=== PATIENT | female | born 1975 | race Caucasian/White ===

== ENCOUNTER → 2018-04-14 | Outpatient (CLI) | payer MEDICAID ==
[~2018-04-14] MED LIST: ACET-2267 PO; CYCL10TA9 PO; IBUP-1780 PO; METH4TAB PO; ONDA4TAB8 PO
--- NOTE | 2018-04-14 12:11 | Diagnostic Imaging Report ---
Indication: Routine screening. No prior mammograms are available for comparison. This is a baseline study. 2-D and 3-D bilateral screening mammography was performed. Scattered fibronodular densities are identified bilaterally. There are benign calcifications bilaterally. No mass or malignant-appearing microcalcifications are seen. The axillae are unremarkable. Impression: BI-RADS category 2 No mammographic features suspicious for malignancy are identified. Dictated by: Dictated on workstation # [id number]
== END ==
LOC: RAD 10:04
PROVIDERS: ATTEND Nurse Practitioner Primary Care
DX: Z12.31 Encounter for screening mammogram for malignant neoplasm of breast (principal)
CPT/HCPCS: 77067

== ENCOUNTER 2018-04-15 17:57 | Emergency (ER) | payer MEDICAID ==
[~2018-04-15] VITALS: Ht 154.9 cm; Wt 91.6 kg
[2018-04-15] MEDS ORDERED: PROMETHAZINE INJ 25 MG/ML (PHENERGAN) AMP IVP STA (18:10)
[2018-04-15] MEDS ORDERED: NS IV 1000 ML 1,000 ML IV STA (18:10)
[2018-04-15] MEDS ORDERED: KETOROLAC 30 MG/ML VIAL IVP STA (18:10)
[2018-04-15] MEDS ORDERED: diphenhydrAMINE 50 MG/ML INJ (BENADRYL) IV STA (18:10)
[2018-04-15] MEDS ORDERED: ACET-2267 PO (18:23)
[2018-04-15] MEDS ORDERED: IBUP-1780 PO (18:23)
--- NOTE | 2018-04-15 18:27 | ED Headache ---
General Chief Complaint: Head/Cervical Problems Stated Complaint: MIGRAINE,WORSE LAST SEVERAL HOURS Source: patient Exam Limitations: no limitations History of Present Illness Date Seen by Provider: Apr 15, 2018 Time Seen by Provider: 18:08 Initial Comments Here with report of migraine headache that is bitemporal and radiates to the back of her head. Typical but longer-lasting than normal. She states that she' s had increased stress recently and so her headache seemed to be more of a problem. She is established with [facility] and her provider there wanted her to come back for further evaluation if things were getting better. Recently started a new job and they think this may be adding to the cause of the headache. She has suffered from migraines for many years. Denies fever or chills. Does have nausea but no vomiting. Aggravated by light and sound. Does have history of sinus problems and is on a variety of medicines for that. Has tried ibuprofen several hours ago and Tylenol this morning and that did not reinaldo the headache. Timing/Duration: 1 week, waxing and waning Severity/Quality: pressure Location: temporal, occipital Prior Headaches/Recent Trauma: frequent headaches Modifying Factors: worse with exposure to light Associated Symptoms: No confusion, No facial pain, No fever/chills, No loss of consciousness, No stiff neck, No vision changes, No weakness Allergies and Home Medications Allergies Coded Allergies: Sulfa (Sulfonamide Antibiotics) (Verified Allergy, Unknown, 04/15/18) codeine (Verified Allergy, Unknown, 04/15/18) Home Medications Acetaminophen 500 Mg Tablet, 1,000 MG PO Q6H PRN for HEADACHE, (Reported) Ibuprofen 800 Mg Tablet, 800 MG PO Q8H PRN for PAIN, (Reported) Patient Home Medication List Home Medication List Reviewed: Yes Review of Systems Constitutional: see HPI; No chills, No fever Eyes: No Symptoms Reported Ears, Nose, Mouth, Throat: see HPI Respiratory: no symptoms reported Cardiovascular: no symptoms reported; No chest pain, No edema Gastrointestinal: No abdominal pain; nausea; No vomiting Genitourinary: no symptoms reported Musculoskeletal: no symptoms reported Skin: no symptoms reported Psychiatric/Neurological: See HPI, Headache; Denies Paresthesia, Denies Weakness Past Yqcjlqu-Soiftg-Orccbu Hx Past Med/Social Hx: Reviewed Nursing Past Med/Soc Hx Patient Social History Alcohol Use: Denies Use Recreational Drug Use: Yes Drug of Choice: METH-CLEAN SINCE AUG 2017 Smoking Status: Never a Smoker Recent Foreign Travel: No Contact w/Someone Who Travel: No Recent Hopitalizations: No Physical Abuse: No Sexual Abuse: No Mistreated: No Fear: No Seasonal Allergies Seasonal Allergies: Yes Past Medical History Surgeries: Yes (CARPAL TUNNEL, BREAST AUG, R HAND ) Gallbladder Respiratory: No Cardiac: No Neurological: Yes Headaches /Migraines Genitourinary: No Gastrointestinal: Yes Gastroesophageal Reflux, Ulcer Musculoskeletal: No Endocrine: No HEENT: No Cancer: No Psychosocial: Yes Anxiety, Depression Nursing Suicide Risk Score: 0 Integumentary: No Blood Disorders: No Family Medical History Reviewed Nursing Family Hx No Pertinent Family Hx Physical Exam Vital Signs Vital Signs - First Documented 04/15/18 18:12 Temp 97.4 Pulse 85 Resp 18 B/P (MAP) 144/100 (115) Pulse Ox 95 Capillary Refill : Height, Weight, BMI Height: '" Weight: lbs. oz. kg; BMI Method: General Appearance: WD/WN, mild distress (headache) HEENT: PERRL/EOMI, pharynx normal Neck: full range of motion, supple Cardiovascular: regular rate, rhythm, no murmur Respiratory: lungs clear, normal breath sounds Gastrointestinal: non tender, soft Back: normal inspection, no CVA tenderness, no vertebral tenderness Extremities: non-tender, normal inspection Psychiatric: alert, oriented x 3 Crainal Nerves: normal hearing, normal speech, PERRL Coordination/Gait: normal gait Motor/Sensory: no motor deficit, no sensory deficit Skin: normal color, warm/dry Progress/Results/Core Measures Results/Orders My Orders Orders - GIOVANY DIA MD Ketorolac Injection (Toradol Injection) (04/15/18 18:10) Promethazine Injection (Phenergan Injec (04/15/18 18:10) Ns Iv 1000 Ml (Sodium Chloride 0.9%) (04/15/18 18:10) Saline Lock/Iv-Start (04/15/18 18:10) Diphenhydramine Injection (Benadryl Inje (04/15/18 18:10) Dexamethasone Injection (Decadron Inject (04/15/18 19:24) Haloperidol Injection (Haldol Injectio (04/15/18 19:30) Haloperidol Injection (Haldol Injectio (04/15/18 19:23) Dexamethasone Injection (Decadron Inject (04/15/18 19:23) Vital Signs/I&O 04/15/18 18:12 Temp 97.4 Pulse 85 Resp 18 B/P (MAP) 144/100 (115) Pulse Ox 95 Progress Progress Note : Progress Note Seen and evaluated. IV, normal saline 1 L bolus, Phenergan 25 mg IV, Benadryl 50 mg IV and Toradol 30 mg IV ordered. Monitor patient. 1909: Pain is not significantly improved. Haldol 5 mg IV and Decadron 10 mg IV ordered. This was given. 1939 pain is much better and patient feels like she can tolerate this at home. Discharged home with return precautions. Patient verbalize understanding instructions and agreement with plan. Departure Impression Primary Impression: Migraine Qualified Codes: G43.909 - Migraine, unspecified, not intractable, without status migrainosus Disposition: HOME, SELF-CARE Condition: Improved Departure-Patient Inst. Decision time for Depature: 19:44 Referrals: KAREEM ANDINO APRN (PCP/Family) Primary Care Physician Patient Instructions: Migraine Headache (DC) Add. Discharge Instructions: All discharge instructions reviewed with patient and/or family. Voiced understanding. Drink plenty of fluids. Follow-up with your doctor this week for recheck and further evaluation. You may take ibuprofen 800 mg every 8 hours as needed for pain. You may take Tylenol/acetaminophen 1000 mg every 8 hours as needed for pain. Return for worse pain, fever, vomiting, weakness, breathing problems or other concerns as needed. Work/School Note: Work Release Form Date Seen in the Emergency Department: Apr 15, 2018 Return to Work: Apr 16, 2018 Restrictions: No Restrictions GIOVANY DIA MD Apr 15, 2018 18:27
[2018-04-15] MEDS ORDERED: HALOPERIDOL 5 MG/ML (HALDOL) AMP ONE (19:23)
[2018-04-15] MEDS ORDERED: DEXAMETHASONE 10 MG/ML (DECADRON) 1 ML VIAL ONE (19:23)
[2018-04-15] MEDS ORDERED: DEXAMETHASONE 10 MG/ML (DECADRON) 1 ML VIAL IV STA (19:24)
[2018-04-15] MEDS ORDERED: HALOPERIDOL 5 MG/ML (HALDOL) AMP IV ONE (19:30)
[2018-04-15 19:56] VITALS: BP 144/100
--- OUTSIDE RECORDS SUMMARY | 2018-04-17 02:59 | XMS REPORT | Summary of Care ---
Author Author Anisha Whittington M.D. Organization Unknown Address [address] [place], [place] [id number] Phone Unavailable Care Team Providers [employer] Sales Representative Name Role Phone Anisha Whittington M.D. Unavailable Unavailable Maria Elena Miller, Elsie Herrera Unavailable Unavailable Andra Stuart PP Unavailable Unavailable Unavailable Functional Status Functional Status Health Issues* Name Dates Details Functional status health issues are not documented Status: Cognitive Status Health Issues* Name Dates Details Cognitive status health issues are not documented Status: Problems Name Dates Details High blood cholesterol level (272.0, E78.0) Status: Active Eustachian tube dysfunction (381.81, H69.80) Status: Active Depression (311, F32.9) Status: Active Chronic rhinitis (472.0, J31.0) Status: Active Chronic sinusitis (473.9, J32.9) Status: Active Nasal congestion (478.19, R09.81) Status: Active Head ache (784.0, R51) Status: Active Medications Name Dates Details Effexor XR 37.5 MG Oral Capsule Extended Release 24 Hour * Started 10-Jun-2014 ActivePROzac 20 MG Oral Capsule * Refills: 0 * Started 10-Jun-2014 ActiveMultivitamins Oral Capsule * Refills: 0 * Started 10-Jun-2014 ActiveTylenol Extra Strength 500 MG Oral Tablet * Refills: 0 * Started 10-Jun-2014 ActiveBenadryl 25 MG Oral Tablet * Refills: 0 * Started 10-Jun-2014 ActiveMucinex D 120-1200 MG Oral Tablet Extended Release 12 Hour * Refills: 0 Anisha Whittington M.D.* Started 01-Jul-2014 ActiveOmeprazole 20 MG Oral Capsule Delayed Release TAKE 1 CAPSULE DAILY. * Refills: 0 Sharon Arredondo M.D.* Started 02-Jul-2015 ActiveRanitidine HCl - 150 MG Oral Tablet TAKE 1 TABLET DAILY NEEDED. * Refills: 0 Anisha Whittington M.D.* Started 02-Jul-2015 ActiveNortriptyline HCl - 25 MG Oral Capsule take 1 capsule daily * Refills: 0 Anisha Whittington M.D.* Started 02-Jul-2015 ActiveFLUoxetine HCl - 40 MG Oral Capsule TAKE 1 CAPSULE DAILY. * Refills: 0 Anisha WhittingtonD.* Started 02-Jul-2015 ActiveDymista 137-50 MCG/ACT Nasal Suspension INSTILL 1 SQUIRT Daily * Refills: 0 Anisha Whittington M.D.* Started 02-Jul-2015 ActiveSimethicone 125 MG Oral Tablet Chewable TAKE DIRECTED. * Refills: 0 Anisha Whittington.D.* Started 02-Jul-2015 Active Allergies and Adverse Reactions Name Dates Details Codeine Sulfate TABS Status: Active Sulfa Drugs Status: Active Procedures Procedure Dates Details History of Gallbladder Surgery History of Breast Surgery Reduction Procedure History of Dental Surgery History of Neuroplasty Decompression Median Nerve At Carpal Tunnel Procedures not documented Immunization Name Dates Details Fluzone Quadrivalent 0.5 ML Intramuscular Suspension Prefilled Syringe Lot #: [id number] Administered on:02-Jul-2015 Family History Father* Name Dates Details Family history of allergic rhinitis (V19.6, Z84.89) Status: Active Sister* Name Dates Details Family history of Food allergy (V15.05, Z91.018) Status: Active Social History Smoking Status* Unknown if ever smoked Vital Signs Date Test Result Details 02-Jul-2015 13:55 BP Systolic 117 mm[Hg] Status: BP Diastolic 85 mm[Hg] Status: Temperature 98.4 f Status: Heart Rate 121 /min Status: Respiration Rate 20 /min Status: Height 61.25 in Status: Weight 169 lb Status: Body Mass Index Calculated 31.67 kg/m2 Status: Body Surface Area Calculated 1.76 m2 Status: Results Date Description Value Details 02-Jul-2015 15:18 XRay SINUS Comments: Exam Date: 07/02/2015 14: 32Dictation Date: 07/02/2015 15:18 X SINUS COMP (MIN 3V) (Better) Plan of Care Planned Observations* Name Dates Details Planned Goals not documented Goal Planned Encounters* Appointment; Provider: Anisha Whittington On 05-Jul-2016 14:15 Instructions * Instructions not documented Encounters Appointment; Anisha Whittington Encounter Diagnosis: Problem not documented On 02-Jul-2015 13:45 Appointment; Anisha Whittington Encounter Diagnosis: Problem not documented On 24-Sep-2014 11:15 Appointment; Anisha Whittington Encounter Diagnosis: Problem not documented On 01-Jul-2014 13:00 Appointment; Darron Chaudhry Encounter Diagnosis: Problem not documented On 10-Jun-2014 14:15
--- OUTSIDE RECORDS SUMMARY | 2018-04-17 03:00 | XMS REPORT | Summary of Care ---
Author Author Anisha Whittington M.D. Organization Unknown Address [address] [place], [place] [id number] Phone Unavailable Care Team Providers Care Horse Groomer Name Role Phone Anisha Whittington M.D. Unavailable Unavailable Isidoro Miller, Elsie Rob Unavailable Unavailable Andra Stuart PP Unavailable Unavailable Unavailable Functional Status Functional Status Health Issues* Name Dates Details Functional status health issues are not documented Status: Cognitive Status Health Issues* Name Dates Details Cognitive status health issues are not documented Status: Problems Name Dates Details High blood cholesterol level (272.0, E78.0) Status: Active Eustachian tube dysfunction (381.81, H69.80) Status: Active Head ache (784.0, R51) Status: Active Depression (311, F32.9) Status: Active Chronic rhinitis (472.0, J31.0) Status: Active Chronic sinusitis (473.9, J32.9) Status: Active Nasal congestion (478.19, R09.81) Status: Active Medications Name Dates Details Flonase 50 MCG/ACT Nasal Suspension * Started 10-Jun-2014 ActiveEffexor XR 37.5 MG Oral Capsule Extended Release 24 Hour * Refills: 0 * Started 10-Jun-2014 ActivePROzac 20 MG Oral Capsule * Refills: 0 * Started 10-Jun-2014 ActiveMultivitamins Oral Capsule * Refills: 0 * Started 10-Jun-2014 ActiveTylenol Extra Strength 500 MG Oral Tablet * Refills: 0 * Started 10-Jun-2014 ActiveBenadryl 25 MG Oral Tablet * Refills: 0 * Started 10-Jun-2014 ActiveFluticasone Propionate 50 MCG/ACT Nasal Suspension USE 2 SPRAYS IN EACH NOSTRIL ONCE DAILY * Quantity: 1 Refills: 0 Darron Chaudhry M.D.* Started 10-Jun-2014 ActiveMucinex D 120-1200 MG Oral Tablet Extended Release 12 Hour * Refills: 0 Anisha Whittington M.D.* Started 01-Jul-2014 ActiveDymista 137-50 MCG/ACT Nasal Suspension 1 spray each nostril twice a day * Quantity: 1 Refills: 6 Anisha Whittington M.D.* Started 01-Jul-2014 Ended 03-Feb-2015 [id number] GM Bottle Allergies and Adverse Reactions Name Dates Details Codeine Sulfate TABS Status: Active Sulfa Drugs Status: Active Procedures Procedure Dates Details History of Gallbladder Surgery History of Breast Surgery Reduction Procedure History of Dental Surgery History of Neuroplasty Decompression Median Nerve At Carpal Tunnel Procedures not documented Immunization Name Dates Details Immunizations not documented Family History Father* Name Dates Details Family history of allergic rhinitis (V19.6, Z84.89) Status: Active Sister* Name Dates Details Family history of Food allergy (693.1, T78.1XXA) Status: Active Social History Smoking Status* Unknown if ever smoked Vital Signs Date Test Result Details 01-Jul-2014 12:53 BP Systolic 122 mm[Hg] Status: BP Diastolic 80 mm[Hg] Status: Heart Rate 78 /min Status: Temperature 98.4 f Status: Weight 162.3125 lb Status: Height 60 in Status: Body Mass Index Calculated 31.7 kg/m2 Status: Body Surface Area Calculated 1.71 m2 Status: Results Date Description Value Details 01-Jul-2014 14:01 CBC w/ Auto Diff 7150 WBC 6.2 K/uL (Better) Range: 4.5-11.0 RBC 4.48 mil/uL (Better) Range: 3.60-5.00 HGB 12.0 g/dL (Better) Range: 12.0-16.0 HCT 37.5 % (Better) Range: 36.0-48.0 MCV 83.7 fL (Better) Range: 80.0-99.0 MCH 26.7 pg (Below low threshold) Range: 27.3-32.5 MCHC 31.8 % (Below low threshold) Range: 32.0-36.0 RDW 13.3 % (Better) Range: 11.6-14.8 PLATELETS 441 K/uL (Above high threshold) Range: 150-400 MPV 6.6 fL (Better) Range: 6.0-11.0 %NEUTRO 52.8 % (Better) Range: 37.0-80.0 %LYMPHS 39.5 % (Better) Range: 13.0-50.0 %MONO 4.1 % (Better) Range: 0.0-12.0 %EOS 1.1 % (Better) Range: 0.0-7.0 %BASO 0.9 % (Better) Range: 0.0-2.5 %LEONEL 1.6 % (Better) Range: 0.0-5.0 NEUTRO 3.3 K/uL (Better) Range: 2.0-6.9 LYMPHS 2.4 K/uL (Better) Range: 0.6-3.4 MONOS 0.3 K/uL (Better) Range: 0.0-0.9 EOS 0.1 K/uL (Better) Range: 0.0-0.7 BASO 0.1 K/uL (Better) Range: 0.0-0.2 05-Jul-2014 11:33 HISS PANEL [id number] Comments: Quest performed at: [facility], [address] [place] [address], , Field Radio Operator: Kevon Steve M.D.Testing performed at: [facility], [address] [place], [place] [address], [address], Field Radio Operator: Nicolas Alejandro D.O., MPHTesting performed at: [employer] , [address] [place] [address], [phone], Field Radio Operator: Damon Camilo MD,PhDQuest Collection Date/Time: [id number] Results Received Date/Time: [id number] Reported Date/Time: [id number] performed at: [employer], [address] [place] [address], , Field Radio Operator: Kevon Steve M.D.Testing performed at: [employer], [facility], [address] [place], [address], Field Radio Operator: Nicolas Alejandro D.O., MPHTesting performed at: [employer], [employer], [address] [place], [address], Field Radio Operator: Damon Camilo MD,PhDQuest Collection Date/Time: [id number] Results Received Date/Time: [id number] Reported Date/Time: [id number] performed at: [facility], [facility], [address] [place] [address], , Field Radio Operator: Kevon Steve M.D.Testing performed at: [place], [facility], [address] [place] [address], [phone], Field Radio Operator: Nicolas Alejandro D.O., MPHTesting performed at: [facility], [facility] [employer], [address] [place] [address], [phone], Field Radio Operator: Damon Camilo MD,PhDQuest Collection Date/Time : [id number] Results Received Date/Time: [id number] Reported Date/Time: [id number] performed at: [facility], [facility], [address] [place] [address], , Field Radio Operator: Kevon Steve M.D.Testing performed at: [place], [facility], [address] [place] [address], [phone], Field Radio Operator: Nicolas Alejandro D.O., MPHTesting performed at: [facility], [facility] [employer], [address] [place], [place] [address], [address], Field Radio Operator: Damon Camilo MD,PhDQuest Collection Date/Time : [id number] Results Received Date/Time: [id number] Reported Date/Time: [id number] performed at: [facility], [facility], [address] [place] [address], , Field Radio Operator: Kevon Steve M.D.Testing performed at: [facility], [address] [place], [phone], Field Radio Operator: Nicolas Alejandro D.O., MPHTesting performed at: [employer], [address] [place], [address], Field Radio Operator: Damon Camilo MD,PhDQuest Collection Date/Time : [id number] Results Received Date/Time: [id number] Reported Date/Time: [id number] performed at: [facility], [address] [place] [address], , Field Radio Operator: Kevon Steve M.D.Testing performed at: [facility], [address] [place] [address], [phone], Field Radio Operator: Nicolas Alejandro D.O., MPHTesting performed at: [employer], [address] [facility] [place], [address], Field Radio Operator: Damon Camilo MD,PhDQuest Collection Date/Time : [id number] Results Received Date/Time: [id number] Reported Date/Time: [id number] IMMUNOGLOBULIN G SUBCLASS 1 368 mg/dL (Below low threshold) Range: 382- 929 Comments: [AMD]----- IMMUNOGLOBULIN G SUBCLASS 2 487 mg/dL (Better) Range: 241-700 Comments: [AMD]----- IMMUNOGLOBULIN G SUBCLASS 3 94 mg/dL (Better) Range: 22-178 Comments: [AMD]----- IMMUNOGLOBULIN G SUBCLASS 4 27.5 mg/dL (Better) Range: 4.0-86.0 Comments: [AMD]----- IMMUNOGLOBULIN G, SERUM 963 mg/dL (Better) Range: 694-1618 Comments: [AMD]----- IMMUNOGLOBULIN A 244 mg/dL (Better) Range: 81-463 Comments: [KS]----- IMMUNOGLOBULIN G 1027 mg/dL (Better) Range: 694-1618 Comments: [KS]----- IMMUNOGLOBULIN M 99 mg/dL (Better) Range: 48-271 Comments: [KS]----- IMMUNOGLOBULIN E 23 kU/L (Better) Range: <EQ=508 Comments: [KS]----- SEROTYPE 1 (1) <0.3 mcg/mL (Better) Comments: [XE]----- SEROTYPE 3 (3) <0.3 mcg/mL (Better) Comments: [XE]----- SEROTYPE 4 (4) <0.3 mcg/mL (Better) Comments: [XE]----- SEROTYPE 5 (5) <0.3 mcg/mL (Better) Comments: [XE]----- SEROTYPE 8 (8) <0.3 mcg/mL (Better) Comments: [XE]----- SEROTYPE 9 (9N) 0.6 mcg/mL (Better) Comments: [XE]----- SEROTYPE 12 (12F) <0.3 mcg/mL (Better) Comments: [XE]----- SEROTYPE 14 (14) 3.8 mcg/mL (Better) Comments: [XE]----- SEROTYPE 19 (19F) 6.1 mcg/mL (Better) Comments: [XE]----- SEROTYPE 23 (23F) <0.3 mcg/mL (Better) Comments: [XE]----- SEROTYPE 26 (6B) 12.3 mcg/mL (Better) Comments: [XE]----- SEROTYPE 51 (7F) 0.4 mcg/mL (Better) Comments: [XE]----- SEROTYPE 56 (18C) 1.8 mcg/mL (Better) Comments: [XE]----- SEROTYPE 68 (9V) <0.3 mcg/mL (Better) Comments: Note: Serotype designations are Americannomenclature, with Beninese nomenclature inparentheses.Studies from the 1979's using radioimmunoassaysuggested that vaccine-induced S. pneumoniaetype-specific antibody levels of approximately 2.0mcg/mL were protective against invasivepneumococcal disease. Newer methods ( JOLENE andmultiplexed immunoassay) incorporating anabsorption step to remove cross-reactiveantibodies yield results that are comparable toeach other, but are lower than those obtained withthe original radioimmunoassay. Rigorous studies ofprotective antibody levels as determined by thenewer methods have not been performed. In additionto antibody quantity, protection also depends onantibody avidity and opsonophagocytic activity.Evaluation of the response to pneumococcalvaccination is best accomplished by comparingpre-vaccination and post-vaccination antibodylevels. A 2- to 4-fold increase in type- specificantibodies measured 4-6 weeks after vaccination isexpected in immunocompetent adults. The number ofserotypes for which a 2- to 4-fold increase isobserved varies greatly among individuals; aconsensus panel has suggested that individualsolder than 5 years should respond to at leastapproximately 70% of pneumococcal serotypes.Adults >65 years old may exhibit a smaller(<2-fold) increase in type-specific antibodylevels.This test was developed and its performancecharacteristics have been determined by [employer]. Performance characteristics refer tothe analytical performance of the test.[XE]----- TETANUS ANTITOXOID 3.09 IU/mL (Better) Comments: REFERENCE RANGE: > or= 0.50 IU/mL (Post-Vaccination)INTERPRETIVE CRITERIA: <0.05 IU/mL Nonprotective Antibody Level 0.05 - 0.49 IU/mL Indeterminate for Protective Antibody > or=0.50 IU/mL Protective Antibody LevelLevels greater than or equal to 0.50 IU/mL aregenerally considered protective, whereas levelsless than 0.05 IU/mL indicate a lack of protectiveantibody. Levels between 0.05 and 0.49 IU/mL areindeterminate for the presence of protectiveantibody and may indicate a need for furtherimmunization to tetanus toxoid.This test was developed and its performancecharacteristics have been determined by [employer]. Performance characteristics refer tothe analytical performance of the test.[XE]- ---- DIPHTHERIA ANTITOXOID 1.48 IU/mL (Better) Comments: REFERENCE RANGE: > or=0.01 IU/mL (Post-Vaccination)INTERPRETIVE CRITERIA: <0.01 IU/mL Nonprotective Antibody Level > or=0.01 IU/mL Protective Antibody LevelThis test was developed and its performancecharacteristics have been determined by [employer]. Performance characteristics refer tothe analytical performance of the test.[XE]----- Plan of Care Planned Observations* Name Dates Details Planned Goals not documented Goal Planned Encounters* Appointment; Provider: Anisha Whittington On 24-Sep-2014 11:15 Instructions * Instructions not documented Encounters Appointment; Anisha Whittington Encounter Diagnosis: Problem not documented On 01-Jul-2014 13:00 Appointment; Darron Chaudhry Encounter Diagnosis: Problem not documented On 10-Jun-2014 14:15
--- OUTSIDE RECORDS SUMMARY | 2018-04-17 03:00 | XMS REPORT | Summary of Care ---
Author Author Anisha Whittington M.D. Organization Unknown Address [address] [place], [place] [id number] Phone Unavailable Care Team Providers Care Plate [employer] Hand Name Role Phone Anisha Whittington M.D. Unavailable Unavailable Andra Stuart PP Unavailable Unavailable [...] R09.81) Status: Active Medications Name Dates Details Effexor [...] Anisha Whittington M.D.* Started 01-Jul-2014 Ended 03-Feb-2015 [id number] GM Bottle Montelukast Sodium 10 MG Oral Tablet Take 1 tablet by mouth every evening. * Quantity: 30 Refills: 6 Anisha Whittington M.D.* Started 24-Sep-2014 Ended Active Allergies and Adverse Reactions Name Dates [...] smoked Vital Signs Date Test Result Details 24-Sep-2014 11:31 BP Systolic 105 mm[Hg] Status: BP Diastolic 72 mm[Hg] Status: Heart Rate 69 /min Status: Temperature 98.1 f Status: Weight 162 lb Status: Height 60 in Status: Body Mass Index Calculated 31.64 kg/m2 Status: Body Surface Area Calculated 1.71 m2 Status: Results Date Description Value Details 28-Sep-2014 08:39 S. PNEUMO IGG (14 SERO) [id number] Comments: Quest performed at: [facility], [facility], [address] [place] [address] , [id number], Platen Press Feeder: Kings Blount MDQuest Collection Date/ Time: [id number] Results Received Date/Time: [id number] Reported Date/Time: [id number] SEROTYPE 1 (1) 6.7 mcg/mL (Better) Comments: [TXC]----- SEROTYPE 3 (3) 2.5 mcg/mL (Better) Comments: [TXC]----- SEROTYPE 4 (4) 0.6 mcg/mL (Better) Comments: [TXC]----- SEROTYPE 5 (5) 7.7 mcg/mL (Better) Comments: [TXC]----- SEROTYPE 8 (8) 15.2 mcg/mL (Better) Comments: [TXC]----- SEROTYPE 9 (9N) 2.7 mcg/mL (Better) Comments: [TXC]----- SEROTYPE 12 (12F) <0.3 mcg/mL (Better) Comments: [TXC]----- SEROTYPE 14 (14) 73.4 mcg/mL (Better) Comments: [TXC]----- SEROTYPE 19 (19F) 121.6 mcg/mL (Better) Comments: [TXC]----- SEROTYPE 23 (23F) 0.7 mcg/mL (Better) Comments: [TXC]----- SEROTYPE 26 (6B) 66.2 mcg/mL (Better) Comments: [TXC]----- SEROTYPE 51 (7F) 6.4 mcg/mL (Better) Comments: [TXC]----- SEROTYPE 56 (18C) 36.1 mcg/mL (Better) Comments: [TXC]----- SEROTYPE 68 (9V) 2.4 mcg/mL (Better) Comments: Note: Serotype designations are Americannomenclature, with Uzbek nomenclature inparentheses.Studies from the using radioimmunoassaysuggested that vaccine-induced S. pneumoniaetype-specific antibody [...] and its performancecharacteristics have been determined by [facility]. Performance characteristics refer tothe analytical performance of the test.[TXC]----- Plan of Care Planned Observations* Name Dates Details Planned Goals not documented Goal Planned Encounters* Appointment; Provider: Anisha Whittington On 22-Jan-2015 14:30 Instructions * Instructions not documented Encounters Appointment; Anisha Whittington Encounter Diagnosis: Problem not documented On 24-Sep-2014 11:15 Appointment; Anisha Whittington Encounter Diagnosis: Problem not documented On 01-Jul-2014 13:00 Appointment; Darron Chaudhry Encounter Diagnosis: Problem not documented On 10-Jun-2014 14:15
--- OUTSIDE RECORDS SUMMARY | 2018-04-17 03:00 | XMS REPORT | Summary of Care ---
Author Author Anisha Whittington M.D. Organization Unknown Address [address] [place], [place] [id number] Phone Unavailable Care Team Providers Care Superintendent [employer] Name Role Phone Anisha Whittington M.D. Unavailable [...] 1 capsule daily * Refills: 0 Anisha WhittingtonD.* Started 02-Jul-2015 ActiveFLUoxetine HCl - 40 MG Oral Capsule TAKE 1 CAPSULE DAILY. * Refills: 0 WhittingtonAnisha.D.* Started 02-Jul-2015 ActiveDymista 137-50 MCG/ACT Nasal Suspension INSTILL 1 SQUIRT Daily * Refills: 0 WhittingtonAnisha.D.* Started 02-Jul-2015 ActiveSimethicone 125 MG Oral Tablet Chewable TAKE DIRECTED. * Refills: 0 Anisha Whittington.D.* Started 02-Jul-2015 Active Allergies and Adverse Reactions Name Dates Details Codeine Sulfate TABS Status: Active Sulfa Drugs Status: Active Procedures Procedure Dates Details History of Gallbladder Surgery History of Breast Surgery Reduction Procedure History of Dental Surgery History of Neuroplasty Decompression Median Nerve At Carpal Tunnel XRay SINUS Ordered:02-Jul-2015 Immunization Name Dates Details Immunizations not documented [...] m2 Status: Results Date Description Value Details Results not documented Plan of Care Planned Observations* Name Dates Details Planned Goals not documented Goal Instructions * Instructions not documented Encounters Appointment; Anisha Whittington Encounter Diagnosis: Problem not documented On 02-Jul-2015 13:45 Appointment; Anisha Whittington Encounter Diagnosis: Problem not documented On 24-Sep-2014 11:15 Appointment; Anisha Whittington Encounter Diagnosis: Problem not documented On 01-Jul-2014 13:00 Appointment; Darron Chaudhry Encounter Diagnosis: Problem not documented On 10-Jun-2014 14:15
--- OUTSIDE RECORDS SUMMARY | 2018-04-17 03:06 | XMS REPORT ---
Author Author [facility]. Medical Staff Organization [facility] Address [address] [place] [address] Phone [phone] Summary purpose CCDA Sent to [facility] Chief Complaint and Reason for Visit No authorized Reason for Visit (Admitting Diagnosis) is available for this visit. Problem list No authorized problems tracked for continuity of care are available for this visit. Encounters No authorized problems tracked for encounter diagnoses are available for this visit. Medications No medications recorded for this patient visit Allergies, adverse reactions, alerts Allergen Category Ingredient Status Reaction Severity Onset Sulfa(Sulfonamide Antibiotics) Drug Sulfa(Sulfonamide Antibiotics) Active Codeine Drug Codeine Active No Known Food Allergy No Known Food Allergy No Known Food Allergy Active Immunizations No immunizations recorded for this patient visit Relevant diagnostic tests and/or laboratory data RESULTS CBC [id number]:00:00 Result Normal Range Units WBC 6.58 4.8-10.8 x103/mm3 Neutrophil % 61.3 50-70 % Lymph % 29.5 20-50 % Parmer % 7.4 1.0-9.0 % Eosinophil % 1.2 0-4 % Basophil % 0.6 0-2 % Neutrophil # 4.03 3.0-7.0 x103/mm3 Lymph # 1.94 1.0-4.0 x103/mm3 Parmer # 0.49 0.0-0.8 x103/mm3 Eosinophil # 0.08 0-0.5 x103/mm3 Basophil # 0.04 0-0.2 x103/mm3 RBC 4.72 4.20-5.40 x103/mm3 HGB 12.7 12.0-16.0 g/dl HCT 38.7 37.0-47.0 % MCV 82.0 81-99 FL MCH L 26.9 27.0-31.0 pg MCHC 32.8 32.0-36.0 g/dl RDW 13.7 12-15 % Platelet 351 150-400 x103/mm3 MPV 9.5 6.0-10.0 FL Chemistry Group [id number]:00 Result Normal Range Units Sodium 138 134-145 mmol/L Potassium 4.5 3.6-5.0 mmol/L Chloride 104 98-107 mmol/L CO2 27 22-30 mmol/L Glucose 89 75-110 mg/dl BUN 9 9-20 mg/dl Creatinine L .66 0.8-1.7 mg/dl eGFR 100 ml/min. Total Protein 6.6 6.3-8.2 g/dl Albumin 3.6 3.5-5.0 g/dl Calcium 9.4 8.4-10.2 mg/dl Alk Phos 62 38-126 U/L AST 20 14-36 U/L ALT 32 11-66 U/L T Bili .3 0.2-1.3 mg/dl A/G Ratio 1.2 Ratio Special Chemistry Group [id number]:00 Result Normal Range Units TSH L 0.46 0.50-6.00 uIU/mL History of procedures Procedure Code Code Type Description Date Performed Performing Physician 53768 CPT-4 COMPLETE CBC W/AUTO DIFF WBC 06-07-2017 [facility] 15738 CPT-4 COMPREHEN METABOLIC PANEL 06-07-2017 [facility] 28451 CPT-4 ASSAY THYROID STIM HORMONE 06-07-2017 [facility] Functional status No functional or cognitive status observations are available for this visit. Vital signs No authorized vital signs are available for this visit. Social history No Social History or smoking status observations were recorded for this visit. ( Unknown if ever smoked.) Treatment Plan No treatment plan text is available for this visit. Hospital discharge instructions No discharge instruction text is available for this visit.
--- OUTSIDE RECORDS SUMMARY | 2018-04-17 03:07 | XMS REPORT ---
Author Author [facility]. Medical Staff Organization [facility] Address [address] [place] [address] Phone [phone] Summary purpose CCDA Sent to [facility] Chief Complaint and Reason for Visit No [...] Relevant diagnostic tests and/or laboratory data RESULTS Special Chemistry Group [id number]:00 Result Normal Range Units TSH 1.63 0.50-6.00 uIU/mL History of procedures Procedure Code Code Type Description Date Performed Performing Physician 50867 CPT-4 ASSAY THYROID STIM HORMONE 10-13-2015 KRYSTA PHELPS Functional status No functional or cognitive status [...]
--- OUTSIDE RECORDS SUMMARY | 2018-04-17 03:09 | XMS REPORT ---
Author Author [facility]. Medical Staff Organization [facility] Address [address] [place] [address] Phone [phone] Summary purpose CCDA Sent to [facility] Chief Complaint and Reason for Visit [...] Relevant diagnostic tests and/or laboratory data RESULTS Chemistry Group [id number]:00 Result Normal Range Units Amylase 67 30-110 U/L Lipase 74 23-300 mg/dl History of procedures No procedures recorded for this patient visit. Functional status No functional or cognitive status [...]
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
--- OUTSIDE RECORDS SUMMARY | 2018-04-17 03:09 | XMS REPORT ---
Author Author [facility]. Medical Staff Organization [facility] Address [address] [place] [address] Phone [phone] Summary purpose CCDA Sent to [facility] Chief Complaint and Reason for Visit Admit Diagnosis 1 ABDOMINAL PAIN, UNSPECIF Problem list Condition Status Certainty Chronicity Onset .Abdominal pain Discharged Encounters The following conditions tracked for encounter diagnoses were recorded for this visit: Finding or Diagnosis Status Certainty Chronicity Onset .Abdominal pain Discharged Medications Home Medications Medication Directions Started Status Source Effexor XR 75 mg capsule,extended release 1 capsule oral -Daily Current Prozac 40 mg capsule 1 capsule oral -Daily Current Singulair 10 mg tablet 1 tablet oral -Daily Current omeprazole 20 mg capsule,delayed release 1 capsule oral -Daily Current Benadryl Allergy 25 mg tablet 1-2 tablet oral As Needed at Bedtime 1-2 at HS prn allergy/cold symptoms Current Zofran 4 mg tablet 1 tablet oral As Needed Every 6 Hours q 6 hrs prn nausea Current Dymista nasal 1 other nasl As needed daily 1 spray in each nostril once daily prn Current Mucinex D 60 mg-600 mg tablet,extended release 1 tablet oral As needed daily Current Multivitamin And Minerals tablet 1 tablet oral -Daily Current ibuprofen 200 mg capsule 2-4 tablet oral -Daily prn Current Tylenol Extra Strength 500 mg tablet 2 tablet oral As Needed Every 4-6 Hours Current Allergies, adverse reactions, alerts Allergen Category Ingredient Status Reaction Severity Onset Sulfa(Sulfonamide Antibiotics) Drug Sulfa(Sulfonamide Antibiotics) Active Codeine Drug Codeine Active No Known Food Allergy No Known Food Allergy No Known Food Allergy Active Immunizations No immunizations recorded for this patient visit Relevant diagnostic tests and/or laboratory data RESULTS [id number]:09:18 Discharge Summary home later today if improving. CBC [id number]:50:00 Result Normal Range Units WBC 7.37 4.8-10.8 x103/mm3 Neutrophil % 61.5 50-70 % Lymph % 30.0 20-50 % Crosby % 5.3 1.0-9.0 % Eosinophil % 2.8 0-4 % Basophil % 0.4 0-2 % Neutrophil # 4.53 3.0-7.0 x103/mm3 Lymph # 2.21 1.0-4.0 x103/mm3 Crosby # 0.39 0.0-0.8 x103/mm3 Eosinophil # 0.21 0-0.5 x103/mm3 Basophil # 0.03 0-0.2 x103/mm3 RBC 4.69 4.20-5.40 x103/mm3 HGB 12.4 12.0-16.0 g/dl HCT 37.6 37.0-47.0 % MCV L 80.2 81-99 FL MCH L 26.4 27.0-31.0 pg MCHC 33.0 32.0-36.0 g/dl RDW 14.0 12-15 % Platelet 337 150-400 x103/mm3 MPV 8.5 6.0-10.0 FL :25:00 Result Normal Range Units WBC 7.85 4.8-10.8 x103/mm3 Neutrophil % 55.4 50-70 % Lymph % 35.2 20-50 % Crosby % 6.8 1.0-9.0 % Eosinophil % 2.3 0-4 % Basophil % 0.3 0-2 % Neutrophil # 4.36 3.0-7.0 x103/mm3 Lymph # 2.76 1.0-4.0 x103/mm3 Crosby # 0.53 0.0-0.8 x103/mm3 Eosinophil # 0.18 0-0.5 x103/mm3 Basophil # 0.02 0-0.2 x103/mm3 RBC 4.82 4.20-5.40 x103/mm3 HGB 12.9 12.0-16.0 g/dl HCT 38.5 37.0-47.0 % MCV L 79.9 81-99 FL MCH L 26.8 27.0-31.0 pg MCHC 33.5 32.0-36.0 g/dl RDW 14.2 12-15 % Platelet 395 150-400 x103/mm3 MPV 8.6 6.0-10.0 FL Chemistry Group :25:00 Result Normal Range Units Sodium 142 134-145 mmol/L Potassium 3.7 3.6-5.0 mmol/L Chloride 102 98-107 mmol/L CO2 27 22-30 mmol/L Glucose 95 75-110 mg/dl BUN L 8 9-20 mg/dl Creatinine .8 0.8-1.7 mg/dl Total Protein 6.7 6.3-8.2 g/dl Albumin 3.6 3.5-5.0 g/dl Calcium 8.9 8.4-10.2 mg/dl Alk Phos 62 38-126 U/L AST 21 14-36 U/L ALT 21 11-66 U/L T Bili .2 0.2-1.3 mg/dl A/G Ratio 1.2 Ratio Lipase 77 23-300 mg/dl Hematology Group [id number]:00 Result Normal Range Units Sed Rate (ESR) 5 0-20 MM/hr. Reference Lab Group [id number]:[id number] Result Normal Range Units H. pylori IgM Negative Negative H. pylori IgM Index 13.90 Results with Index Values of <36.00 are negative. Test Performed by: [place] [address] Dispatcher Radioactive Waste Disposal: Nicolas Acosta II, M.D., Ph.D. Helicobacter Pylori [place] [address] Blacksmith Supervisor Annette Tavera MD History of procedures Procedure Code Code Type Description Date Performed Performing Physician 13817 CPT-4 INITIAL OBSERVATION CARE 05-10-2015 DON WONG 05233 CPT-4 INITIAL OBSERVATION CARE 05-11-2015 DON WONG 10178 CPT-4 INITIAL OBSERVATION CARE 05-12-2015 DON WONG 54477 CPT-4 THER/PROPH/DIAG INJ IV PUSH 05-10-2015 DON WONG 60234 CPT-4 TX/PRO/DX INJ NEW DRUG ADDON 05-11-2015 DON WONG 86705 CPT-4 TX/PRO/DX INJ SAME DRUG RESEARCH BIOLOGIST 05-11-2015 DON WONG 18586 CPT-4 HYDRATE IV INFUSION ADD-ON 05-10-2015 DON WONG 20199 CPT-4 HYDRATE IV INFUSION ADD-ON 05-11-2015 DON WONG Functional status Functional Status Finding Observation Time Weight Bearing Statu Full :58 Able to Turn Self in Independent :58 Cognitive Status Finding Observation Time Level of Consciousne Alert :42 Oriented to Person Yes :[address] Yes :42 Oriented to Time Yes :42 Vital signs Type Value Date Respirations 20 :17 Pulse 81 :17 O2 Saturation 97% :17 Systolic Blood Press 112mm/HG : Diastolic Blood Pres 76mm/HG :17 Temperature (Fahr) 98.8Degrees :17 Height 61in :17 Weight 167.6LB :17 Social history Type Value Smoking Status NEVER SMOKER Treatment Plan No treatment plan text is available for this visit. Hospital discharge instructions Diagnosis abdominal pain Diet no restrictions Activity Level no restrictions Personal Items Retur none received Med Dispensed by Pro script with patient for Percocet Follow up with [facility] Appointment Date and 7-10 days Comment: pt will make appointment Follow up with [facility] sonogram Appointment Date and 05/13/15 @ 1500 Other Instructions Return or call for any return, increaed, or new symptoms.
--- OUTSIDE RECORDS SUMMARY | 2018-04-17 03:12 | XMS REPORT ---
Author Author [facility] Medical Staff Organization [facility] Address [address] [place] [address] Phone [phone] Summary purpose CCDA Sent to [facility] Chief Complaint and Reason for Visit Admit Diagnosis 1 ABDOMINAL PAIN, UNSPECIF Problem list No authorized problems tracked for continuity of care are available for this visit. Encounters No authorized problems tracked for encounter diagnoses are available for this visit. Medications No home medications recorded for this patient visit Allergies, adverse reactions, alerts Allergen Category Ingredient Status Reaction Severity Onset Sulfa(Sulfonamide Antibiotics) Drug Sulfa(Sulfonamide Antibiotics) Active Codeine Drug Codeine Active No Known Food Allergy No Known Food Allergy No Known Food Allergy Active Immunizations No immunizations recorded for this patient visit Relevant diagnostic tests and/or laboratory data RESULTS CBC [id number]:55:00 Result Normal Range Units WBC 7.29 4.8-10.8 x103/mm3 Neutrophil % 68.4 50-70 % Lymph % 25.2 20-50 % [place] % 4.5 1.0-9.0 % Eosinophil % 1.5 0-4 % Basophil % 0.4 0-2 % Neutrophil # 4.98 3.0-7.0 x103/mm3 Lymph # 1.84 1.0-4.0 x103/mm3 [place] # 0.33 0.0-0.8 x103/mm3 Eosinophil # 0.11 0-0.5 x103/mm3 Basophil # 0.03 0-0.2 x103/mm3 RBC 4.74 4.20-5.40 x103/mm3 HGB 12.7 12.0-16.0 g/dl HCT 37.8 37.0-47.0 % MCV L 79.7 81-99 FL MCH L 26.8 27.0-31.0 pg MCHC 33.6 32.0-36.0 g/dl RDW 14.0 12-15 % Platelet H 422 150-400 x103/mm3 MPV 8.5 6.0-10.0 FL Chemistry Group [id number]:00 Result Normal Range Units Sodium 139 134-145 mmol/L Result Amended on 2015-05-09 at 10:55:06. Previous status was UT. Potassium L 3.4 3.6-5.0 mmol/L Result Amended on 2015-05-09 at 10:55:06. Previous status was UT. Chloride 102 98-107 mmol/L Result Amended on 2015-05-09 at 10:55:06. Previous status was UT. CO2 25 22-30 mmol/L Result Amended on 2015-05-09 at 10:55:06. Previous status was UT. Glucose 87 75-110 mg/dl Result Amended on 2015-05-09 at 10:55:06. Previous status was UT. BUN L 6 9-20 mg/dl Result Amended on 2015-05-09 at 10:55:06. Previous status was UT. Creatinine L .7 0.8-1.7 mg/dl Result Amended on 2015-05-09 at 10:55:06. Previous status was UT. Total Protein 7.0 6.3-8.2 g/dl Result Amended on 2015-05-09 at 10:55:06. Previous status was UT. Albumin 3.9 3.5-5.0 g/dl Result Amended on 2015-05-09 at 10:55:06. Previous status was UT. Calcium 8.7 8.4-10.2 mg/dl Result Amended on 2015-05-09 at 10:55:06. Previous status was UT. Alk Phos 73 38-126 U/L AST H 59 14-36 U/L ALT 23 11-66 U/L Result Amended on 2015-05-09 at 10:55:06. Previous status was UT. T Bili .6 0.2-1.3 mg/dl Result Amended on 2015-05-09 at 10:55:06. Previous status was UT. A/G Ratio 1.2 Ratio Result Amended on 2015-05-09 at 10:55:06. Previous status was UT. History of procedures Procedure Code Code Type Description Date Performed Performing Physician 55292 CPT-4 COMPLETE CBC AUTOMATED 05-09-2015 KRYSTA PHELPS 81981 CPT-4 COMPREHEN METABOLIC PANEL 05-09-2015 KRYSTA PHELPS Functional status No functional or [...]
--- OUTSIDE RECORDS SUMMARY | 2018-04-17 03:13 | XMS REPORT ---
Author Author [facility]. Medical Staff Organization [facility] Address [address] [place] [address] Phone [phone] Summary purpose CCDA Sent to [facility] Chief Complaint and Reason for [...] visit Relevant diagnostic tests and/or laboratory data No authorized results are available for this patient visit History of procedures Procedure Code Code Type Description Date Performed Performing Physician J2175 CPT-4 MEPERIDINE HYDROCHL /100 MG 01-20-2016 KRYSTA PHELPS J2550 CPT-4 PROMETHAZINE HCL INJECTION 01-20-2016 KRYSTA PHELPS 78372 CPT-4 EMERGENCY DEPT VISIT 01-20-2016 KRYSTA PHELPS 47860 CPT-4 THER/PROPH/DIAG INJ, SC/IM 01-20-2016 KRYSTA PHELPS 87901 CPT-4 THER/PROPH/DIAG INJ, SC/IM 01-20-2016 KRYSTA PHELPS Functional status Cognitive Status Finding Observation Time Level of Consciousne Alert 02-79-652740:22 Oriented to Person Yes 63-40-145562:[address] Yes 64-55-922172:22 Oriented to Time Yes :22 Vital signs Type Value Date Respirations 16 16-01-150318:07 Pulse 70 93-26-022430:07 O2 Saturation 97% 77-25-527465:07 Systolic Blood Press 116mm/HG 91-58-877081:07 Diastolic Blood Pres 81mm/HG :07 Temperature (Fahr) 98.5Degrees :07 Height 61in :18 Weight 170LB :18 Social history Type Value Smoking Status NEVER SMOKER Treatment Plan No treatment plan text is available for this visit. Hospital discharge instructions No discharge instruction text is available for this visit.
--- OUTSIDE RECORDS SUMMARY | 2018-04-17 03:14 | XMS REPORT | Continuity of Care Document ---
Author Author [facility] Address Unknown Phone Unavailable Support Name Relationship Address Phone ODALYS WRIGHT MD Caregiver [address] [place] [address] CANTUNORA CRUM Next Of Kin [address] [place], [place] [id number] Insurance Providers Payer Name Policy Number Subscriber Name Relationship Workmans Comp Other [id number] Andriy Cantu 20 Employer Advance Directives Directive Response Recorded Date/Time Advanced Directives No 10/11/16 2:47pm Chief Complaint and Reason for Visit Chief Complaint Laceration Reason for Visit [id number] Problems Active Problems Medical Problem Onset Date Status 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 Plan of Care Discharge Date 10/11/16 5:18pm Disposition 01 HOME OR SELF-CARE Condition at Discharge Stable Instructions/Education Provided Wound Care (DC) Prescriptions See Medication Section Additional Instructions/Education Follow up with Dr. Crews as scheduled on Tuesday. Elevate hand. Percocet, Keflex as directed. ED ELISE if any worse (increasing pain, signs of infection, any other concern). Some of your test results may not be complete prior to your leaving the Emergency Department. The Emergency Department is not authorized to give test results over the phone. Please contact the doctor's office listed in this packet of information for your final results. Follow up with your primary care physician or return to the Emergency Department for worsening or worrisome symptoms. * Emergency Department phone number: [phone], x [phone]* MEDICAL RECORD If you need copies of your X-rays, call [phone] x [phone]. If you need copies of your medical record, including lab results, a signed authorization for release of records will be required. A telephone call for release of Health Information is not allowed. BILLING Billing can sometimes be confusing and frustrating. To help avoid confusion in the future, please take a moment to acquaint yourself with the billing parties for services. SERVICE BILLING LIBERTARIAN Emergency Room Services [facility] Physician Services [facility] X-rays [facility] Patients will receive bills for services from the appropriate provider. If you have any questions about your [facility] bill, our staff will be happy to assist you. Please call [phone], and ask for the billing department. THANK YOU for choosing [facility] as your emergency care provider! Care Plan and Goals ~~Discharge Care Plan~~ Problem: Contusion, pain to affected area, fall. Goal: Decreased contusion and pain to affected area. Instructions: Apply ice to area for 15-20 minutes every 3-4 hours. Elevate extremity above the level of the heart, if applicable. Splint area with pillow or blanket to any chest/abdomen injuries. Use incentive spirometry as directed. Take at least 10 deep breaths per hour. Take medication(s) as directed. Follow up with regular physician or specialist as directed. Exercise as tolerated or directed by physician. Functional Status No functional status results. Allergies, Adverse Reactions, Alerts Allergen Type Severity Reaction Status Last Updated Sulfa (Sulfonamide Antibiotics) Allergy Unknown Active 10/11/16 Codeine Allergy Unknown Active 10/11/16 Immunizations Name Given Type Status Tdap 10/11/16 Administered Completed Vital Signs Acute Vital Signs Vital Response Date/Time Temperature (Fahrenheit) 99.4 10/11/2016 2:47pm Pulse 77 bpm 10/11/2016 8:30pm Respirations 17 10/11/2016 8:30pm Height 5 ft 7 in Weight 154 lb Body Mass Index 24.0 kg/m^2 Results No known relevant diagnostic tests, laboratory data and/or discharge summary. Procedures No known history of procedures. Encounters Encounter Location Arrival/Admit Date Discharge/Depart Date Attending Provider Registered Emergency Room [facility] 10/11/16 2:42pm ODALYS WRIGHT MD Recent Diagnosis
--- OUTSIDE RECORDS SUMMARY | 2018-04-17 03:14 | XMS REPORT ---
Author Author [facility] Medical Staff Organization [facility] Address [address] [place] [address] Phone [phone] Summary purpose CCDA Sent to [facility] Chief Complaint and Reason for Visit Admit Diagnosis 1 ABDOMINAL PAIN Problem list No authorized problems tracked for [...] diagnostic tests and/or laboratory data RESULTS CBC [id number]:15:00 Result Normal Range Units WBC 6.69 4.8-10.8 x103/mm3 Neutrophil % 58.0 50-70 % Lymph % 33.2 20-50 % [place] % 7.2 1.0-9.0 % Eosinophil % 1.3 0-4 % Basophil % 0.3 0-2 % Neutrophil # 3.88 3.0-7.0 x103/mm3 Lymph # 2.22 1.0-4.0 x103/mm3 [place] # 0.48 0.0-0.8 x103/mm3 Eosinophil # 0.09 0-0.5 x103/mm3 Basophil # 0.02 0-0.2 x103/mm3 RBC 5.13 4.20-5.40 x103/mm3 HGB 13.0 12.0-16.0 g/dl HCT 39.4 37.0-47.0 % MCV L 76.8 81-99 FL MCH L 25.3 27.0-31.0 pg MCHC 33.0 32.0-36.0 g/dl RDW H 16.2 12-15 % Platelet 359 150-400 x103/mm3 MPV 8.6 6.0-10.0 FL Urinalysis :50:00 Result Normal Range Units Site VOID Color Yellow Urine Appearance Clear Specific Marion 1.025 1.005-1.030 pH 6.5 5.0-9.0 Protein Negative Negative Glucose Negative Negative Ketones Negative Negative Bilirubin Negative Negative Blood AB Trace Negative Nitrite Negative Negative Urobilinogen 0.2 0.20 mg/dl Leukocyte Negative Negative Chemistry Group :15:00 Sodium SEE MANUAL REPORT Potassium SMR Result Amended on 2016-04-13 at 09:29:46. Previous status was ME. Chloride SMR Result Amended on 2016-04-13 at 09:29:46. Previous status was ME. CO2 SMR Result Amended on 2016-04-13 at 09:29:46. Previous status was ME. Glucose SMR Result Amended on 2016-04-13 at 09:29:46. Previous status was ME. BUN SMR Result Amended on 2016-04-13 at 09:29:47. Previous status was ME. Creatinine SMR Result Amended on 2016-04-13 at 09:29:47. Previous status was ME. eGFR SMR Total Protein SMR Result Amended on 2016-04-13 at 09:29:47. Previous status was ME. Albumin SMR Result Amended on 2016-04-13 at 09:29:47. Previous status was ME. Calcium SMR Result Amended on 2016-04-13 at 09:29:47. Previous status was ME. Alk Phos SMR Result Amended on 2016-04-13 at 09:29:47. Previous status was ME. AST SMR Result Amended on 2016-04-13 at 09:29:47. Previous status was ME. ALT SMR Result Amended on 2016-04-13 at 09:29:47. Previous status was ME. T Bili SMR Result Amended on 2016-04-13 at 09:29:47. Previous status was ME. A/G Ratio SMR Result Amended on 2016-04-13 at 09:29:47. Previous status was ME. Urinalysis with Microscopic :50:00 Result Normal Range Units Site VOID Color Yellow Urine Appearance Clear Specific Marion 1.025 1.005-1.030 pH 6.5 5.0-9.0 Protein Negative Negative Glucose Negative Negative Ketones Negative Negative Bilirubin Negative Negative Blood AB Trace Negative Nitrite Negative Negative Urobilinogen 0.2 0.20 mg/dl Leukocyte Negative Negative History of procedures No procedures recorded for this patient visit. Functional status Cognitive Status Finding Observation Time Level of Consciousne Alert :04 Oriented to Person Yes :[address] Yes :04 Oriented to Time Yes :04 Vital signs Type Value Date Respirations 12 :55 Pulse 87 :55 O2 Saturation 96% :55 Systolic Blood Press 133mm/HG :55 Diastolic Blood Pres 86mm/HG :55 Temperature (Fahr) 97.7Degrees :41 Social history Type Value Smoking Status NEVER SMOKER Treatment Plan No treatment plan text is available for this visit. Hospital discharge instructions No discharge instruction text is available for this visit.
--- OUTSIDE RECORDS SUMMARY | 2018-04-17 03:14 | XMS REPORT ---
Author Author [facility]. Medical Staff Organization [facility] Address [address] [place] [address] Phone [phone] Summary purpose CCDA Sent to [facility] Chief Complaint and Reason for Visit Admit Diagnosis 1 cough shortness of breath Problem list No authorized problems tracked for [...] for this patient visit History of procedures No procedures recorded for [...]
--- OUTSIDE RECORDS SUMMARY | 2018-04-17 03:17 | XMS REPORT ---
Author Author [facility]. Medical Staff Organization [facility] Address [address] [place] [address] Phone [phone] Summary purpose CCDA Sent to [facility] Chief Complaint and Reason for Visit Admit Diagnosis 1 VIRAL ENTERITIS NOS Problem list No authorized problems tracked for continuity of care are available for this visit. Encounters No authorized problems tracked for encounter diagnoses are available for this visit. Medications Home Medications Medication Directions Started Status Source Effexor XR 75 mg capsule,extended release 1 capsule oral -Daily Current Prozac 40 mg capsule 1 capsule oral -Daily Current Singulair 10 mg tablet 1 tablet oral -Daily Current Allergies, adverse reactions, alerts Allergen Category Ingredient Status Reaction Severity Onset Sulfa(Sulfonamide Antibiotics) Drug Sulfa(Sulfonamide Antibiotics) Active Codeine Drug Codeine Active Immunizations No immunizations recorded for this patient visit Relevant diagnostic tests and/or laboratory data No authorized results are available for this patient visit History of procedures Procedure Code Code Type Description Date Performed Performing Physician 13208 CPT-4 EMERGENCY DEPT VISIT 10-27-2014 ERIC HARTLEY 47786 CPT-4 THER/PROPH/DIAG INJ, IV PUSH 10-27-2014 ERIC HARTLEY 44701 CPT-4 TX/PRO/DX INJ NEW DRUG ADDON 10-27-2014 ERIC HARTLEY 36411 CPT-4 HYDRATE IV INFUSION, ADD-ON 10-27-2014 ERIC HARTLEY J2405 CPT-4 ONDANSETRON HCL INJECTION 10-27-2014 ERIC HARTLEY J7120 CPT-4 RINGER'S LACTATE INFUSION 10-27-2014 ERIC HARTLEY J7120 CPT-4 RINGER'S LACTATE INFUSION 10-27-2014 ERIC HARTLEY J2780 CPT-4 RANITIDINE HCL 25 MQ INJ 10-27-2014 ERIC HARTLEY J7050 CPT-4 NS SOLUTION 250 CC INFUSION 10-27-2014 ERIC HARTLEY Functional status No functional or cognitive status observations are available for this visit. Vital signs Type Value Date Pulse 77 :50 O2 Saturation 98% :50 Systolic Blood Press 121mm/HG :50 Diastolic Blood Pres 84mm/HG :50 Temperature (Fahr) 97.7Degrees :50 Social history Type Value Smoking Status NEVER SMOKER Treatment Plan No treatment plan text is available for this visit. Hospital discharge instructions No discharge instruction text is available for this visit.
--- OUTSIDE RECORDS SUMMARY | 2018-04-17 03:17 | XMS REPORT ---
Author Author [facility]. Medical Staff Organization [facility] Address [address] [place] [address] Phone [phone] Summary purpose CCDA Sent to [facility] Chief Complaint and Reason for Visit [...] diagnostic tests and/or laboratory data RESULTS CBC [id number]:10:00 Result Normal Range Units WBC 8.07 4.8-10.8 x103/mm3 Neutrophil % 66.3 50-70 % Lymph % 27.0 20-50 % [place] % 4.8 1.0-9.0 % Eosinophil % 1.4 0-4 % Basophil % 0.5 0-2 % Neutrophil # 5.35 3.0-7.0 x103/mm3 Lymph # 2.18 1.0-4.0 x103/mm3 [place] # 0.39 0.0-0.8 x103/mm3 Eosinophil # 0.11 0-0.5 x103/mm3 Basophil # 0.04 0-0.2 x103/mm3 RBC 4.94 4.20-5.40 x103/mm3 HGB 12.8 12.0-16.0 g/dl HCT 38.6 37.0-47.0 % MCV L 78.1 81-99 FL MCH L 25.9 27.0-31.0 pg MCHC 33.2 32.0-36.0 g/dl RDW H 16.4 12-15 % Platelet H 410 150-400 x103/mm3 MPV 9.0 6.0-10.0 FL Chemistry Group [id number]:10:00 Result Normal Range Units Sodium 137 134-145 mmol/L Potassium 4.1 3.6-5.0 mmol/L Chloride 102 98-107 mmol/L CO2 27 22-30 mmol/L Glucose 80 75-110 mg/dl BUN 9 9-20 mg/dl Creatinine L .7 0.8-1.7 mg/dl Total Protein 6.7 6.3-8.2 g/dl Albumin 3.8 3.5-5.0 g/dl Calcium 9.0 8.4-10.2 mg/dl Alk Phos 71 38-126 U/L AST 21 14-36 U/L ALT 32 11-66 U/L T Bili .7 0.2-1.3 mg/dl A/G Ratio 1.3 Ratio History of procedures No procedures recorded for [...]
--- OUTSIDE RECORDS SUMMARY | 2018-04-17 03:19 | XMS REPORT ---
Author Author [facility]. Medical Staff Organization [facility]. Address [address] [place] [address] Phone [phone] Summary purpose CCDA Sent to [facility] Chief Complaint and Reason for Visit No [...]
--- OUTSIDE RECORDS SUMMARY | 2018-04-17 03:21 | XMS REPORT | Summary of Care ---
Author Author Anisha Whittington M.D. Organization Unknown Address [address] [place], [place] [id number] Phone Unavailable Care Team Providers Care Encephalographer Name Role Phone Anisha Whittington M.D. Unavailable [...] Anisha Whittington M.D.* Started 01-Jul-2014 Ended 03-Feb-2015 [id number] GM Bottle Allergies and Adverse Reactions Name [...] (Better) Range: 0.0-0.2 05-Jul-2014 11:33 HISS PANEL [id number] Comments: Quest performed at: [facility] [facility], [address] [place] [address], , Furniture Crater: Kevon Steve M.D.Testing performed at: [employer] [facility], [address] [place], [place] [address] [place], [address], Furniture Crater: Nicolas Alejandro D.O., MPHTesting performed at: [employer], [employer] , [address] [place] [address], [address], Furniture Crater: Damon Camilo MD,PhDQuest Collection Date/Time: [id number] Results Received Date/Time: [id number] Reported Date/Time: [id number] performed at: [employer] [facility], [address] [place] [address], , Furniture Crater: Kevon Steve M.D.Testing performed at: [employer], [facility], [address] [place], [address], Furniture Crater: Nicolas Alejandro D.O., MPHTesting performed at: [employer], [employer], [address] [place], [address], Furniture Crater: Damon Camilo MD,PhDQuest Collection Date/Time: [id number] Results Received Date/Time: [id number] Reported Date/Time: [id number] performed at: [facility], [facility], [address] [place] [address], , Furniture Crater: Kevon Steve M.D.Testing performed at: [place], [facility], [address] [place] [address], [address], Furniture Crater: Nicolas Alejandro D.O., MPHTesting performed at: XE, [facility], [address] [place] [address], [address], Furniture Crater: Damon Camilo MD,PhDQuest Collection Date/Time : [id number] Results Received Date/Time: [id number] Reported Date/Time: [id number] performed at: [facility], [facility], [address] [place] [address], , Furniture Crater: Kevon Steve M.D.Testing performed at: [place], [facility], [address] [place] [address], [phone], Furniture Crater: Nicolas Alejandro D.O., MPHTesting performed at: XE, [facility] [employer], [address] [place], [place] [address] [place], [address], Furniture Crater: Damon Camilo MD,PhDQuest Collection Date/Time : [id number] Results Received Date/Time: [id number] Reported Date/Time: [id number] performed at: [facility], [facility], [address] [place] [address], , Furniture Crater: Kevon Steve M.D.Testing performed at: [facility], [address] [place], [address], Furniture Crater: Nicolas Alejandro D.O., MPHTesting performed at: [employer], [address] [place], [address], Furniture Crater: Damon Camilo MD,PhDQuest Collection Date/Time : [id number] Results Received Date/Time: [id number] Reported Date/Time: [id number] performed at: [facility], [address] [place] [address], , Furniture Crater: Kevon Steve M.D.Testing performed at: [facility], [address] [place] [address], [address], Furniture Crater: Nicolas Alejandro D.O., MPHTesting performed at: [employer], [address] [facility], [address], Furniture Crater: Damon Camilo MD,PhDQuest Collection Date/Time : [id number] Results Received Date/Time: [id number] Reported Date/Time: [id number] IMMUNOGLOBULIN G SUBCLASS 1 368 mg/dL (Below [...] [KS]----- IMMUNOGLOBULIN E 23 kU/L (Better) Range: <QP=647 Comments: [KS]----- SEROTYPE 1 (1) <0.3 mcg/mL [...] Comments: Note: Serotype designations are Americannomenclature, with Palestinian nomenclature inparentheses.Studies from the 1979's using radioimmunoassaysuggested [...] and its performancecharacteristics have been determined by [employer]. Performance characteristics refer tothe analytical performance of [...] and its performancecharacteristics have been determined by [employer]. Performance characteristics refer tothe analytical performance of the test.[XE]- ---- DIPHTHERIA ANTITOXOID 1.48 IU/mL (Better) Comments: REFERENCE RANGE: > or=0.01 IU/mL (Post-Vaccination)INTERPRETIVE CRITERIA: <0.01 IU/mL Nonprotective Antibody Level > or=0.01 IU/mL Protective Antibody LevelThis test was developed and its performancecharacteristics have been determined by [employer]. Performance characteristics refer tothe analytical performance of [...]
--- OUTSIDE RECORDS SUMMARY | 2018-04-17 03:22 | XMS REPORT ---
Author Author [facility]. Medical Staff Organization [facility]. Address [address] [place] [address] Phone [phone] Summary purpose CCDA Sent to [facility] Chief Complaint and Reason for Visit [...]
--- OUTSIDE RECORDS SUMMARY | 2018-04-17 03:22 | XMS REPORT | Summary of Care ---
Author Author Anisha Whittington M.D. Organization Unknown Address [address] [place], [place] [id number] Phone Unavailable Care Team Providers Care Business Rules Analyst Name Role Phone Anisha Whittington M.D. Unavailable [...] Refills: 0 Anisha Whittington M.D.* Started 01-Jul-2014 ActiveMontelukast Sodium 10 MG Oral Tablet Take 1 tablet by mouth every evening. * Quantity: 30 Refills: 6 Anisha Whittington M.D.* Started 24-Sep-2014 Ended ActiveDymista 137-50 MCG/ACT Nasal Suspension 1 spray each nostril twice a day * Quantity: 1 Refills: 6 Anisha Whittington M.D.* Started 01-Jul-2014 Ended 03-Feb-2015 [id number] GM Bottle Allergies and Adverse Reactions Name [...] 28-Sep-2014 08:39 S. PNEUMO IGG (14 SERO) [id number] Comments: Quest performed at: [facility], [employer], [address] [place] [address] , [address], Work Adjustment Instructor: Kings Blount MDQuest Collection Date/ Time: [id number] Results Received Date/Time: [id number] Reported Date/Time: [id number] SEROTYPE 1 (1) 6.7 mcg/mL (Better) Comments: [...] Comments: Note: Serotype designations are Americannomenclature, with Korean nomenclature inparentheses.Studies from the using radioimmunoassaysuggested that [...] and its performancecharacteristics have been determined by [employer]. Performance characteristics refer tothe analytical performance of [...]
--- OUTSIDE RECORDS SUMMARY | 2018-04-17 03:22 | XMS REPORT ---
Author Author HARSHA MCKEON [facility] Address [address] [place] [address] Phone Unavailable Care Team Providers Care Policy Writer Sales Name Role Phone HARSHA MCKEON Unavailable Unavailable PROBLEMS Unknown Problems ALLERGIES No Known Allergies SOCIAL HISTORY Never Assessed PLAN OF CARE Activity Details Follow Up PATIENT HAS APPOINTMENT Reason:TE #13 ? VITAL SIGNS MEDICATIONS No Known Medications RESULTS No Results PROCEDURES Procedure Date Ordered Result Body Site Full mouth debridement February 18, 2017 IMMUNIZATIONS No Known Immunizations MEDICAL (GENERAL) HISTORY Type Description Date Surgical History tubal ligation Surgical History carpal tunnel release Surgical History cholecystectomy Hospitalization History Meth addiction treatment
--- OUTSIDE RECORDS SUMMARY | 2018-04-17 03:22 | XMS REPORT ---
Author Author NENA ANGUIANO [facility] Address [address] [place] [address] Care Team Providers Care Senior Java Web Developer Name Role Phone NENA ANGUIANO Unavailable PROBLEMS Unknown Problems ALLERGIES Substance Reaction Event Type Date Status Codeine Sulfate Unknown Drug Allergy January, Active SOCIAL HISTORY Never Assessed PLAN OF CARE Activity Details Follow Up prn Reason: VITAL SIGNS Height 61 in 2017-02-24 Weight 175.0 lbs 2017-02-24 Temperature 98.2 degrees Fahrenheit 2017-02-24 Heart Rate 80 bpm 2017-02-24 Respiratory Rate 20 2017-02-24 BMI 33.06 kg/m2 2017-02-24 Blood pressure systolic 120 mmHg 2017-02-24 Blood pressure diastolic 88 mmHg 2017-02-24 MEDICATIONS Medication Instructions Dosage Frequency Start Date End Date Duration Status Abilify 2 MG Orally Once a day 1 tablet 24h Active Vilazodone HCl 40 MG Orally Once a day 1 tablet with food 24h Active Omeprazole 20 MG Orally Twice a day 1 capsule 12h Active Flonase 50 MCG/ACT Nasally Once a day 1 spray in each nostril 24h January, 30 day(s) Active Zyrtec Allergy 10 MG Orally Once a day 1 tablet 24h January, Mar, 30 day(s) Active Amoxicillin 500 MG Orally every 8 hrs 1 capsule 8h January, Mar, 7 days Active Singulair 10 MG Orally Once a day 1 tablet in the evening 24h Active RESULTS No Results PROCEDURES No Known procedures IMMUNIZATIONS No Known Immunizations MEDICAL (GENERAL) HISTORY Type Description Date Surgical History tubal ligation Surgical History carpal tunnel release Surgical History cholecystectomy Hospitalization History Meth addiction treatment
--- OUTSIDE RECORDS SUMMARY | 2018-04-17 03:24 | XMS REPORT | Continuity of Care Document ---
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 08/28/2016 18:34:00 DIS [id number] 04/13/2016 13:24:00 04/13/2016 13:24:00 DIS Outpatient VALERIANO PHELPS MD, [facility] ALA [id number] 04/11/2016 21:40:00 04/12/2016 00:55:00 DIS Emergency NIKOLAY OSHEA BRENDA Tom [facility] ER [id number] 01/20/2016 19:03:00 01/20/2016 19:59:00 DIS Emergency VALERIANO PHELPS MD, [facility] ER [id number] 10/14/2015 08:04:00 10/14/2015 08:04:00 DIS Outpatient VALERIANO PHELPS MD, [facility] ALA [id number] 05/11/2015 19:00:00 05/12/2015 14:21:00 DIS [place] [address] [id number] 05/09/2015 10:19:00 05/09/2015 10:19:00 DIS Outpatient VALERIANO PHELPS MD, [facility] [id number] 10/27/2014 20:48:00 10/27/2014 23:52:00 DIS Emergency ERIC BONILLA [facility] ER [id number] 07/07/2014 15:00:00 07/07/2014 15:52:00 DIS Emergency ERIC BONILLA [facility] ER [id number] 06/10/2014 13:33:00 06/10/2014 13:33:00 DIS Outpatient ANGIE ASHLEY [facility] [id number] 09/28/2017 19:59:00 Document Registration [id number] 10/25/2014 13:20:00 Document Registration [id number] 10/25/2014 11:07:00 Document Registration [id number] 09/05/2012 08:20:00 Document Registration [id number] 08/11/2012 09:04:00 Document Registration [id number] 08/03/2012 09:00:00 Document Registration [id number] 07/23/2012 15:22:00 Document Registration [id number] 07/21/2012 10:54:00 Document Registration [id number] 07/20/2012 14:08:00 Document Registration [id number] 07/14/2012 18:30:00 Document Registration [id number] 07/14/2012 13:00:00 Document Registration [id number] 07/09/2012 09:25:00 Document Registration [id number] 07/04/2012 18:00:00 Document Registration [id number] 06/08/2012 07:41:00 Document Registration [id number] 05/23/2012 09:15:00 Document Registration [id number] 05/18/2012 08:12:00 Document Registration [id number] 04/25/2012 09:06:00 Document Registration [id number] 02/04/2012 11:19:00 Document Registration [id number] 01/28/2012 08:25:00 Document Registration [id number] 12/19/2007 19:45:00 Document Registration [id number] 02/08/2006 16:00:00 Document Registration [id number] 02/07/2006 08:00:00 Document Registration [id number] 09/28/2017 20:15:00 09/28/2017 20:40:00 DIS Emergency JUDITH KAT, JOE [facility] [id number] 07/04/2012 22:16:00 07/05/2012 16:38:00 DIS Outpatient aSra KAT, Rosa Maria Manzano [facility] [id number] 07/04/2012 22:01:00 07/04/2012 22:13:00 DIS Outpatient Krista KAT, Epifanio Otero [facility] [id number] 10/11/2016 14:42:00 10/11/2016 17:18:00 DIS [id number]/10[facility]2015 21:03:51 ACT Document Registration [id number] 05/27/2016 17:58:11 Document Registration [id number] 04/11/2016 23:18:00 04/11/2016 23:59:59 CLS Out[facility]IKOLAY [facility]HE[facility] [id number] 04/21/2017 16:36:00 04/21/2017 23:59:59 CLS Outpatient WARNER DEWITT [facility] [id number] 04/06/2017 12:28:00 04/06/2017 23:59:59 CLS Outpatient [facility] [id number] 03/21/2017 14:13:00 03/21/2017 23:59:59 CLS Outpatient HUMBERTO LEN [facility] [id number] 04/21/2017 16:36:00 Document Registration [id number] 04/06/2017 12:28:00 Document Registration [id number] 03/21/2017 14:13:00 Document Registration [id number] 04/14/2018 10:04:00 ACT Outpatient KAREEM ANDINO APRN [facility] RAD WELL WOMAN EXAM,SCREENING FOR BREAST CANCER [id number] 09/28/2017 20:05:07 09/28/2017 20:15:31 DIS Outpatient Judith KAT, Joe C[facility]
== END 2018-04-15 20:00 | disposition home or self-care (01) ==
LOC: EDUNIT# 17:57 → ER 17:58
DX: G43.909 Migraine, unspecified, not intractable, without status migrainosus (principal); K21.9 Gastro-esophageal reflux disease without esophagitis; F41.9 Anxiety disorder, unspecified; F32.9 Major depressive disorder, single episode, unspecified; Z88.2 Allergy status to sulfonamides; Z88.5 Allergy status to narcotic agent
CPT/HCPCS: 96361; 96374; 96375

== ENCOUNTER 2018-04-21 19:33 | Emergency (ER) | payer MEDICAID ==
[~2018-04-21] VITALS: Ht 154.9 cm; Wt 91.6 kg
[~2018-04-21 19:33] MED LIST changes: -CYCL10TA9 PO; -METH4TAB PO; -ONDA4TAB8 PO
--- OUTSIDE RECORDS SUMMARY | 2018-04-21 19:42 | XMS REPORT ---
Author Author LASHAEABUNDIOGAYLA [facility] Address Unknown Care Team Providers Care Brush Painter Name Role Phone GAYLA REYES Unavailable PROBLEMS Unknown Problems ALLERGIES Substance Reaction Event Type Date Status Codeine Sulfate Unknown Drug Allergy January, Active ENCOUNTERS Encounter Location Date Diagnosis [facility] [id number] [place] [address] [phone] January, Dental examination Z01.20 [facility] [id number] [place] [address] [phone] January, Middle ear effusion, right H65.91 and Dental abscess K04.7 [facility] [id number] [place] [address] [phone] January, Encounter for dental examination and cleaning with abnormal findings Z01.21 IMMUNIZATIONS No Known Immunizations SOCIAL HISTORY Never Assessed REASON FOR VISIT te PLAN OF CARE Activity Details Follow Up prn Reason:refer to [place] SIGNS Blood pressure systolic 116 mmHg 2017-03-02 Blood pressure diastolic 58 mmHg 2017-03-02 MEDICATIONS Medication Instructions Dosage Frequency Start Date End Date Duration Status Omeprazole 20 MG Orally Twice a day 1 capsule 12h Active Abilify 2 MG Orally Once a day 1 tablet 24h Active Singulair 10 MG Orally Once a day 1 tablet in the evening 24h Active Amoxicillin 500 MG Orally every 8 hrs 1 capsule 8h January, Mar, 7 days Active Vilazodone HCl 40 MG Orally Once a day 1 tablet with food 24h Active Flonase 50 MCG/ACT Nasally Once a day 1 spray in each nostril 24h January, 30 day(s) Active Zyrtec Allergy 10 MG Orally Once a day 1 tablet 24h January, Mar, 30 day(s) Active RESULTS No Results PROCEDURES Procedure Date Ordered Result Body Site LTD ORAL EVALUATION - PROBLEM FOCUS March 02, 2017 INTRAORL-PERIAPICAL 1 FILM [id number] March 02, 2017 INSTRUCTIONS MEDICATIONS ADMINISTERED No Known Medications MEDICAL (GENERAL) HISTORY Type Description Date Surgical History tubal ligation Surgical History carpal tunnel release Surgical History cholecystectomy Hospitalization History Meth addiction treatment
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
[2018-04-21] MEDS ORDERED: ORPHENADRINE 60 MG/2 ML (NORFLEX) AMP IM ONE (20:30)
[2018-04-21] MEDS ORDERED: diphenhydrAMINE 50 MG/ML INJ (BENADRYL) IM ONE (20:30)
[2018-04-21] MEDS ORDERED: ONDANSETRON 4 MG (ZOFRAN) ORAL DISSOLVE TAB PO ONE (20:30)
[2018-04-21] MEDS ORDERED: KETOROLAC 60 MG/2 ML VIAL IM ONE (20:30)
--- NOTE | 2018-04-21 20:34 | ED Headache ---
General Stated Complaint: MIGRAINE Source: patient Exam Limitations: no limitations History of Present Illness Date Seen by Provider: Apr 21, 2018 Time Seen by Provider: 20:15 Initial Comments PT ARRIVES VIA POV FROM HOME C/O "MIGRAINE" FOR 2 WEEKS OFF AND ON --"EVERY COUPLE OF DAYS" HEADACHE IS IN BOTH TEMPLES AND OCCIPUT HEADACHE IS DULL PRESSURE, NOTHING WORSENS HEADACHE SLIGHT NAUSEA, NO VOMITING SLIGHT DIZZINESS OFF AND ON--NOT NOW SLIGHT BLURRY VISION OFF AND ON--NOT NOW NO FEVER HAS HISTORY OF ALLERGIES, BUT NO PROBLEMS SINCE STARTING ON ZYRTEC A COUPLE OF WEEKS AGO HAS LONG HISTORY OF HEADACHES FOR MANY YEARS--GETS 5-6 A MONTH NORMALLY THIS HEADACHE IS EXACTLY THE SAME ALL PREVIOUS HEADACHES WENT TO [facility] TODAY AND HEADACHE WAS ALOT BETTER AND WENT AWAY TEMPORARILY, THEN STARTED TO COME BACK THIS EVENING PT SEEN AT [facility] 2 WEEKS AGO, FOR THIS PROBLEM, AND WAS STARTED ON IBUPROFEN 800 MG TOOK 1 IBUPROFEN 800 MG THIS AM, THEN TOOK 600 MG TOTAL OF OTC IBUPROFEN 2 HOURS AGO HAS NOT TAKEN TYLENOL TODAY FOR PAIN PT WAS SEEN AT [facility] EXAM LAST WEEK AND WAS STARTED ON PROPRANOLOL FOR THIS PROBLEM, AND TOOK THIS AM WAS DX WITH BACTERIAL VAGINAL INFECTION --HAS FINISHED THOSE ANTIBIOTICS LMP 03/30/18 PT SEEN HERE 1 WEEK AGO FOR THIS SAME PROBLEM--WAS GIVEN IV FLUIDS AND MEDICATIONS AND HEADACHE WENT AWAY PCP: STEPHANIE ANDINO--[facility]--"JUST MOVED HERE" . Allergies and Home Medications Allergies Coded Allergies: Sulfa (Sulfonamide Antibiotics) (Verified Allergy, Unknown, 04/15/18) codeine (Verified Allergy, Unknown, 04/15/18) Home Medications Acetaminophen 500 Mg Tablet, 1,000 MG PO Q6H PRN for HEADACHE, (Reported) Cyclobenzaprine HCl 10 Mg Tablet, 10 MG PO Q8H Prescribed by: AMMY MILNER on 04/21/182052 Ibuprofen 800 Mg Tablet, 800 MG PO Q8H PRN for PAIN, (Reported) Methylprednisolone 4 Mg Tab.ds.pk, 4 MG PO UD Prescribed by: AMMY MILNER on 04/21/182052 Ondansetron 4 Mg Tab.rapdis, 4 MG PO Q4H Prescribed by: AMMY MILNER on 04/21/182052 Patient Home Medication List Home Medication List Reviewed: Yes Review of Systems Constitutional: see HPI Eyes: See HPI, Blurred Vision Ears, Nose, Mouth, Throat: see HPI Respiratory: no symptoms reported Cardiovascular: no symptoms reported Gastrointestinal: see HPI; No abdominal pain, No loss of appetite; nausea; No vomiting Genitourinary: no symptoms reported : No LMP: Mar 30, 2018 (S/P BTL) Musculoskeletal: no symptoms reported Skin: no symptoms reported Psychiatric/Neurological: See HPI, Headache; Denies Numbness, Denies Paresthesia, Denies Seizure, Denies Tingling, Denies Tremors, Denies Weakness Past Omnwupx-Ttfrhi-Zeyidw Hx Patient Social History Alcohol Use: Past History (MODERATE USE IN PAST) Recreational Drug Use: Yes (METH USE BY HISTORY--DENIES IV USE AND NONE SINCE 08/2017, PER PT ON 04/2018) Drug of Choice: METH-CLEAN SINCE AUG 2017 Smoking Status: Never a Smoker Recent Foreign Travel: No Contact w/Someone Who Travel: No Recent Hopitalizations: No Seasonal Allergies Seasonal Allergies: Yes Past Medical History Surgeries: Yes (CARPAL TUNNEL, BREAST AUG, R HAND ) Breast, Gallbladder, Orthopedic Respiratory: No Cardiac: No Neurological: Yes Headaches /Migraines Female Reproductive Disorders: Denies CHURN TENDER History: Tubal Ligation Genitourinary: No Gastrointestinal: Yes Gastroesophageal Reflux, Ulcer Musculoskeletal: No Endocrine: No HEENT: No Cancer: No Psychosocial: Yes Anxiety, Depression Integumentary: No Blood Disorders: No Family Medical History No Pertinent Family Hx Physical Exam Vital Signs Vital Signs - First Documented 04/21/18 20:10 Temp 98.2 Pulse 64 Resp 18 B/P (MAP) 139/90 (106) Pulse Ox 98 Capillary Refill : Height, Weight, BMI Height: 5'1.00" Weight: 202lbs. oz. 91.067453iu; BMI Method:Stated General Appearance: WD/WN, no apparent distress HEENT: PERRL/EOMI, normal ENT inspection, TMs normal, pharynx normal, other ( DIFFUSE TENDERNESS TO FRONTAL, MAXILLARY AND ETHMOID SINUS AREAS, WELL BILATERAL TEMPLES) Neck: full range of motion, supple, other (MILD BILATERAL CERVICAL PARAVERTEBRAL MUSCLE TENDERNESS AND SPASMS) Cardiovascular: regular rate, rhythm, no murmur Respiratory: normal breath sounds, no respiratory distress, no accessory muscle use Gastrointestinal: normal bowel sounds, non tender, soft Back: normal inspection, no CVA tenderness Extremities: normal range of motion, non-tender, normal inspection, no pedal edema, no calf tenderness, normal capillary refill Psychiatric: alert, oriented x 3 Crainal Nerves: normal hearing, normal speech, PERRL Coordination/Gait: normal gait Motor/Sensory: no motor deficit, no sensory deficit, no pronator drift Skin: normal color, warm/dry Progress/Results/Core Measures Results/Orders My Orders Orders - AMMY MILNER DO Ketorolac Injection (Toradol Injection) (04/21/18 20:30) Orphenadrine Injection (Norflex Injectio (04/21/18 20:30) Diphenhydramine Injection (Benadryl Inje (04/21/18 20:30) Ondansetron Oral Dissolve Tab (Zofran (04/21/18 20:30) Medications Given in ED Current Medications Medications Dose Ordered Sig/Ronnell Route Start Time Stop Time Status Last Admin Dose Admin Diphenhydramine HCl 50 mg ONCE ONCE IM 04/21/18 20:30 04/21/18 20:31 DC 04/21/18 20:49 50 MG Ketorolac Tromethamine 60 mg ONCE ONCE IM 04/21/18 20:30 04/21/18 20:31 DC 04/21/18 20:49 60 MG Ondansetron HCl 4 mg ONCE ONCE PO 04/21/18 20:30 04/21/18 20:31 DC 04/21/18 20:50 4 MG Orphenadrine Citrate 60 mg ONCE ONCE IM 04/21/18 20:30 04/21/18 20:31 DC 04/21/18 20:49 60 MG Vital Signs/I&O 04/21/18 20:10 Temp 98.2 Pulse 64 Resp 18 B/P (MAP) 139/90 (106) Pulse Ox 98 Progress Progress Note : Progress Note HEADACHE RESOLVED AT DISMISSAL Departure Impression Primary Impression: Headache Disposition: HOME, SELF-CARE Condition: Improved Departure-Patient Inst. Referrals: KAREEM ANDINO APRN (PCP/Family) Primary Care Physician Patient Instructions: Headache, Adult (DC) Add. Discharge Instructions: LOTS OF CLEAR LIQUIDS FOLLOW UP WITH [facility] IN 2-3 DAYS FOR FURTHER CARE Scripts Cyclobenzaprine HCl (Cyclobenzaprine HCl) 10 Mg Tablet 10 MG PO Q8H, #15 TAB Prov: AMMY MILNER DO 04/21/18 Methylprednisolone (Medrol) 4 Mg Tab.ds.pk 4 MG PO UD, #1 PKG Prov: AMMY MILNER DO 04/21/18 Ondansetron (Zofran Odt) 4 Mg Tab.rapdis 4 MG PO Q4H for Nausea/Vomiting, #10 TAB Prov: AMMY MILNER DO 04/21/18 AMMY MILNER DO Apr 21, 2018 20:34
[2018-04-21] MEDS ORDERED: ONDA4TAB8 PO (20:53)
[2018-04-21] MEDS ORDERED: CYCL10TA9 PO (20:53)
[2018-04-21] MEDS ORDERED: METH4TAB PO (20:53)
[2018-04-21 21:46] VITALS: BP 139/90
== END 2018-04-21 21:45 | disposition home or self-care (01) ==
LOC: EDUNIT# 19:33 → ER 19:34
DX: R51 Headache (principal); K21.9 Gastro-esophageal reflux disease without esophagitis; F41.9 Anxiety disorder, unspecified; F32.9 Major depressive disorder, single episode, unspecified; Z87.19 Personal history of other diseases of the digestive system; Z98.51 Tubal ligation status; Z88.2 Allergy status to sulfonamides; Z88.5 Allergy status to narcotic agent; Z79.52 Long term (current) use of systemic steroids
CPT/HCPCS: 96372; 99284